=== PATIENT | female | born 1995 | race Caucasian/White ===

== ENCOUNTER 2017-05-27 12:18 | Emergency (ER) | payer OTHER ==
[~2017-05-27] VITALS: Ht 170.2 cm; Wt 111.1 kg
--- NOTE | ~2017-05-27 | CR127 ---
[facility] A Service of [facility] & [facility] RADIOLOGY TEXT RESULTS PATIENT: SUNG ROCK LOCATION: [facility] : [birth year] UNIT #: [id number] AGE: [address]: Deanne Milligan APRN SEX: F ORDER DR: [id number] [facility] [address] [place], [place] [address] [id number] E MR#: [id number] Acc #: [id number] NAME: SUNG ROCK : 1995 SEX: F STUDY DATE/TIME: 05/27/2017 12:47 UNIT: TX ROOM: STUDY DESCRIPTION: CR Foot Complete Min 3 View Rt Attending Physician: Deanne Milligan A.P.R.N. Ordering Physician: Ed Сергей Langley M.D. Primary Care Physician: Primary Care Physician No MEDICAL IMAGING REPORT This report is preliminary unless electronic signature is present EXAM Right foot series INDICATION Right heel pain after an injury 3 months ago. PROCEDURE 3 views of the right foot. COMPARISON 03/29/2017 FINDINGS No acute fracture or dislocation. IMPRESSION No acute findings. Dictated by... Nick Carreno M.D. THIS IS AN ELECTRONICALLY VERIFIED REPORT Nick Carreno M.D. at 05/29/2017 5:02 PM STEFAN/gianna TD: 05/27/2017 22:27 JOB #: [id number] MEDICAL IMAGING REPORT Page 1 of 1 COPY
== END 2017-05-27 13:25 | disposition home or self-care (01) ==
LOC: CFTX 12:18 → CED 12:18 → CFTX 13:07
DX: M79.671 Pain in right foot (principal); Z88.6 Allergy status to analgesic agent
CPT/HCPCS: 73630; 99283

== ENCOUNTER 2017-07-14 22:26 | Emergency (ER) | payer OTHER ==
[~2017-07-14] VITALS: Ht 172.7 cm; Wt 123.4 kg
--- NOTE | ~2017-07-14 | CR173 ---
[facility] A Service of [facility] RADIOLOGY TEXT RESULTS PATIENT: SUNG ROCK LOCATION: [facility] : [birth year] UNIT #: [id number] AGE: [address]: Sarai Muñiz APRN SEX: F ORDER DR: [id number] [facility] [address] [place], [place] [address] [id number] E MR#: [id number] Acc #: [id number] NAME: SUNG ROCK : 1995 SEX: F STUDY DATE/TIME: 07/15/2017 0:51 UNIT: [facility] ROOM: STUDY DESCRIPTION: CR Knee 3 Views Rt Attending Physician: Sarai Muñiz A.P.R.N. Ordering Physician: Sarai Muñiz A.P.R.N. Primary Care Physician: Donovan Cordon M.D. MEDICAL IMAGING REPORT This report is preliminary unless electronic signature is present EXAM Right knee series, 07/15/2017 HISTORY 22-year-old female in the ED complaining of right knee pain and swelling after a fall at grocery store earlier today. TECHNIQUE Three-view right knee series. FINDINGS Examination is negative. No fracture, dislocation, arthropathy or other osseous abnormality is demonstrated. IMPRESSION Negative right knee series. Dictated by... Dk Mancilla M.D. THIS IS AN ELECTRONICALLY VERIFIED REPORT Dk Mancilla M.D. at 07/16/2017 6:02 AM [place] TD: 07/16/2017 02:07 JOB #: [id number] MEDICAL IMAGING REPORT Page 1 of 1 COPY
== END 2017-07-15 02:20 | disposition home or self-care (01) ==
LOC: CED 22:26
DX: S80.01XA Contusion of right knee, initial encounter (principal); J45.909 Unspecified asthma, uncomplicated; W19.XXXA Unspecified fall, initial encounter
CPT/HCPCS: 29530; 73562; 84703; 99283